=== PATIENT | female | born 1965 | race Caucasian/White ===

== ENCOUNTER → 2021-05-30 | Outpatient (CLI) | payer BC ==
[2021-05-30 10:22] LABS: GLUCOSE,CSF 85 mg/dL (50-80); TOTAL PROTEIN,CSF 48 mg/dL (20-45)
[2021-05-30 10:40] LABS: WBC (AUTOMATED 12 10^3 (0-5)
[2021-05-30 10:41] LABS: WBC (AUTOMATED 1 10^3 (0-5)
[2021-05-31 15:14] LABS: CSF IGG INDEX 0.6 (0.0-0.7); CSF/SERUM ALB. INDEX 6 (0-8); IMMUNOGLOBULIN G, QN, SERUM 896 mg/dL (586-1602)
== END ==
LOC: RAD 08:12
PROVIDERS: Psychiatry & Neurology Neurology
DX: G35 Multiple sclerosis (principal)
CPT/HCPCS: 82040; 82784; 82945; 83873; 83916; 84157; 87015; 87070; 87116; 87205; 87210; 89051